=== PATIENT | male | born 1990 | race Caucasian/White ===

== ENCOUNTER 2025-08-31 10:34 | Emergency (ER) | payer MEDICAID, SELFPAY ==
[2025-08-31 10:34] VITALS: BP 140/106; PULSE 87; RESP 16; TEMP 36.6; O2SAT 99; BMI 24.9
--- NOTE | 2025-08-31 11:56 | CT_ITS ---
PROCEDURE: ABDOMEN/PELVIS W IV CONT ONLY 08/31/2025 REASON FOR EXAM: RIGHT SIDE ABDOMINAL PAIN TECHNIQUE: Procedure Code: [id number] Modality: CT Procedure: ABDOMEN/PELVIS W IV CONT ONLY Coronal and Sagittal reconstruction series were provided. CONTRAST: Isovue-300 VOLUME: 100 mL One or more dose reduction techniques were used (e.g., Automated exposure control, adjustment of the mA and/or kV according to patient size, use of iterative reconstruction technique. RADIATION DOSE SUMMARY: CTDlvol: 11.3 mGy DLP: 804.97 mGycm COMPARISON: None FINDINGS: Lung bases: Lung bases are clear. Liver: Normal size. No mass. Gallbladder: Unremarkable Spleen: Borderline splenomegaly. Pancreas: Normal size without evidence of mass surrounding inflammation or ductal dilation. Adrenals: Unremarkable Kidneys: Normal renal sizes. No hydronephrosis. Bladder: The bladder is not completely distended. Bowel: Unremarkable Appendix: Unremarkable Lymph nodes: Unremarkable. Vasculature: The abdominal aorta and IVC are normal. Peritoneum / Retroperitoneum: Unremarkable Bones: Unremarkable CT/Abdomen/Pelvis W IV Cont ONLY IMPRESSION: Borderline splenomegaly. No other abnormality is seen. Reading Location: [place] [id number]
--- NOTE | 2025-08-31 12:00 | EX.ED.DYSGE1 ---
HPI History of Present Illness Chief Complaint: Abd Pain Narrative Narrative: Chief complaint and HPI: 35-year-old male with no significant past medical history presents for evaluation of right sided abdominal pain. Onset of symptoms since Sunday. Worse with movement. He denies any fever, chills, shortness of breath, chest pain, nausea, vomiting, diarrhea, constipation, dysuria. Denies any history of abdominal surgeries. Review of systems: See HPI Medications: As listed on the chart Allergies: As listed on the chart PFSH: Per chart Vital signs: As listed on the chart. Reviewed. Physical exam: Gen: A&O x3, NAD Head: Normocephalic, atraumatic Eyes: No sclera icterus, conjunctiva clear ENT: Moist mucous membranes CV: RRR, no murmurs Resp: Lungs CTA BL, no w/r/c GI: Abd soft, non-distended, mild tenderness to palpation in the right upper/periumbilical region, no r/r/g Musc: Full ROM, no deformity Skin: Warm, dry Neuro: Alert, oriented, grossly intact, sensation intact Psych: Cooperative, appropriate mood and affect [facility] Medical History (Updated 08/31/25 @ 11:00 by Karyn Shaver) Hernia of abdominal wall Home Medications ?Medication ?Instructions ?Recorded ?Last Taken ?Type NK 08/31/25 Unknown History Allergy/AdvReac Type Severity Reaction Status Date / Time No Known Allergies Allergy Verified 08/31/25 10:34 Surgical History (Updated 08/31/25 @ 11:01 by Karyn Shaver) History of tonsillectomy Social History Smoking Status: Current every day smoker tobacco type: smokeless tobacco EXAM Physical Exam Const Vital Signs: 08/31/25 10:34 08/31/25 12:34 Temperature 97.9 F Temperature Source Oral Pulse Rate 87 68 Respiratory Rate 16 16 Blood Pressure 140/106 H 132/80 H Blood Pressure Mean 117 97 Pulse Ox 99 100 Oxygen Delivery Method Room Air Room Air MDM MDM MDM Narrative Medical decision making narrative: 35-year-old male with no significant past medical history presents for evaluation of right sided abdominal pain. Onset of symptoms since Sunday. Worse with movement. He denies any fever, chills, shortness of breath, chest pain, nausea, vomiting, diarrhea, constipation, dysuria. Differential diagnosis includes but is not limited to viral gastroenteritis, cholelithiasis, cholecystitis, appendicitis, pancreatitis, urolithiasis. Laboratory workup ordered including CT abdomen pelvis. NS bolus ordered. Patient declined pain medicine. CBC without leukocytosis or anemia. Platelets unremarkable. CMP unremarkable except for mild renal insufficiency. Lipase unremarkable. UA positive for ketones which is consistent with mild dehydration/renal insufficiency. UA negative for UTI. CT abdomen pelvis shows borderline splenomegaly. Otherwise no acute intra-abdominal process. Unclear etiology for patient's right-sided abdominal pain at this time. Patient states pain is worse with movement, may be secondary to a muscle strain. Tylenol and Motrin as needed for pain. Follow-up with primary care physician. Patient was updated of all the results and confirmed understand the plan. Patient stable discharge home. Impression: 1. Right sided abdominal pain, unclear etiology Lab Data Labs: Laboratory Results - last 24 hr 08/31/25 08/31/25 11:45 12:00 WBC 6.8 RBC 5.74 Hgb 16.4 Hct 48.5 MCV 84.5 MCH 28.6 MCHC 33.8 RDW Std Deviation 38.6 RDW Coeff of Caden 12.7 Plt Count 303 MPV 10.3 Immature Gran % (Auto) 0.300 Neut % (Auto) 71.5 H Lymph % (Auto) 16.9 L Casey % (Auto) 7.1 Eos % (Auto) 3.2 Baso % (Auto) 1.0 Absolute Neuts (auto) 4.9 Absolute Lymphs (auto) 1.15 Nucleated RBC % 0 Sodium 140 Potassium 3.8 Chloride 102 Carbon Dioxide 26.5 Anion Gap 12 BUN 9 Creatinine 1.21 H Estim Creat Clear Calc 92.64 Est GFR (MDRD) Non-Af 80 BUN/Creatinine Ratio 7.2 L Glucose 91 Calcium 9.8 Total Bilirubin 1.03 AST 18 ALT 13 Alkaline Phosphatase 63 Total Protein 7.9 Albumin 4.8 Globulin 3.1 Albumin/Globulin Ratio 1.5 Lipase 34 Urine Color Yellow Urine Clarity Clear Urine pH 6.0 Ur Specific [place] 1.020 Urine Protein 15 H Urine Glucose (UA) Normal Urine Ketones 15 H Urine Occult Blood Negative Urine Nitrite Negative Urine Bilirubin Negative Urine Urobilinogen 1 H Ur Leukocyte Esterase Negative Urine RBC 0-5 SEEN Urine WBC 0 SEEN Ur Squamous Epith Cells 0 SEEN Urine Bacteria 1+ Urine Mucus 2+ Radiography Diagnostic Testing: Clinical Impression(s) from Imaging Studies Abdomen/Pelvis CT 08/31/25 11:56 IMPRESSION: Borderline splenomegaly. No other abnormality is seen. Reading Location: [place] [id number] Discharge Plan Triage Chief Complaint: Abd Pain ED Provider: Mehul Coleman Dx/Rx/DC Orders Prescriptions: No Action NK Primary Care Provider: Care Physician,No Primary Referrals: Care Physician,No Primary [Primary Care Provider, Medical] Print Language: Telugu
[2025-08-31] MEDS: 0.9% Normal Saline (1000mL) 1,000 ML 999 ML IV (12:09)
[2025-08-31 12:22] LABS: Squamous Epithelial Cells - UA 0 SEEN /hpf (0-5)
[2025-08-31 12:24] LABS: Color, Urine Yellow (Yellow); Glucose, Dipstick Normal (Normal); Ketone-Dipstick 15 mg/dl (Negative); Leukocyte Esterase-Dipstick Negative /ul (Negative); Nitrite-Dipstick Negative (Negative); Occult Blood-Urine Negative /ul (Negative); Protein-Dipstick 15 mg/dl (Negative); Specific Gravity, Urine 1.020 (1.002-1.030); Urine Bilirubin Dipstick Negative (Negative)
[2025-08-31 12:26] LABS: Hematocrit 48.5 % (40-54); Hemoglobin 16.4 g/dL (13.0-16.5); Immature Granulocytes Count 0.020 X10^3/uL (0.0-0.0); Mean Corp Hgb Conc 33.8 g/dL (32-36); Mean Corpuscular Volume 84.5 fL (80-94); Mean Platelet Vol. 10.3 fl (6.2-12.0); NRBC Flagged by Analyzer 0 % (0-5); Platelet Count 303 K/mm3 (150-450); RBC Distribution Width CV 12.7 % (11.6-14.6); RBC Distribution Width SD 38.6 fl (35.1-43.9); Red Blood Count 5.74 M/mm3 (4.6-6.2); White Blood Count 6.8 K/mm3 (4.4-11.0)
[2025-08-31 12:34] VITALS: BP 132/80; PULSE 68; RESP 16; O2SAT 100
[2025-08-31 12:39] LABS: Mucous, Urine 2+ /hpf (<or=2+); Red Blood Cells-Urine 0-5 SEEN /hpf (0-5)
[2025-08-31 12:55] LABS: AST(SGOT) 18 U/L (<=37); Alanine Aminotransfer ALT/SGPT 13 U/L (<=46); Albumin, Serum 4.8 g/dL (3.5-5.0); Alkaline Phosphatase 63 U/L (40-129); Anion Gap 12 (5-15); BUN 9 mg/dL (4-19); BUN/Creat Ratio 7.2 RATIO (10-20); Calcium,Total 9.8 mg/dL (7.6-11.0); Carbon Dioxide 26.5 mmol/L (21.0-32.0); Chloride 102 mmol/L (98-108); Estimated Creatinine Clearance 92.64 ml/min (50-250); Globulin 3.1 g/dL (2.2-4.2); Glucose 91 mg/dL (70-99); Lipase 34 U/L (13-75); Potassium 3.8 mmol/L (3.3-5.1)
[2025-08-31 13:34] VITALS: BP 130/94; PULSE 68; RESP 16; TEMP 36.8; O2SAT 100
== END 2025-08-31 13:34 | disposition home or self-care (01) ==
PROVIDERS: Emergency Provider Surgery; Visit Provider Surgery
DX: R10.11 Right upper quadrant pain (principal); R10.33 Periumbilical pain; N28.9 Disorder of kidney and ureter, unspecified; F17.220 Nicotine dependence, chewing tobacco, uncomplicated
CPT/HCPCS: 74177; 80053; 81001; 83690; 85025; 96360; 99283; Q9967; A4216